=== PATIENT | female | born 1960 | race Caucasian/White ===

== ENCOUNTER → 2016-10-16 | Outpatient (CLI) | payer BC ==
[~2016-10-16] MED LIST: ACETAMINOPHEN PO; ALBUTEROL17 G1 IH; AVALIDE 150-12.1 TAB PO; BENADRYL25 MG PO; EC-NAPROSYN500 MG PO; EPIPEN0.3 MG/0.1 IM; FLEXERIL10 MG PO; LEXAPRO PO; MEDROL DOSEPAK4 MG PO; MEDROL4 MG/DOSE- PO; NEURONTIN100 MG PO; PEPCID AC20 M2 PO; PERCOCET 5/321 UDTAB DOB; PREDNISONE PO; REQUIP1 MG PO; ZITHROMAX1 G/PKT PO
--- NOTE | ~2016-10-16 | US24 ---
[facility] A Service of [facility] RADIOLOGY TEXT RESULTS PATIENT: MARIAH VALDIVIA LOCATION: [facility] : 60 UNIT #: [id number] AGE: [address]: Perla Moscoso APRN SEX: F ORDER DR: [id number] [facility] [address] [place], [place] [address] [id number] O MR#: [id number] Acc #: [id number] NAME: MARIAH VALDIVIA. : 1960 SEX: F STUDY DATE/TIME: 10/16/2016 16:09 UNIT: [facility] ROOM: STUDY DESCRIPTION: US Breast Unilateral Attending Physician: Perla Moscoso A.P.R.N. Referring Physician: Perla Moscoso A.P.R.N. Ordering Physician: Perla Moscoso A.P.R.N. Primary Care Physician: Perla Moscoso A.P.R.N. MEDICAL IMAGING REPORT This report is preliminary unless electronic signature is present EXAM Left breast ultrasound. COMPARISON STUDIES Screening mammogram, 10/02/2016; other mammograms, 05/18/2015, 04/13/2015, 05/11/2008; left breast ultrasound, 05/18/2015. HISTORY 55-year-old female with an enlarging 1 o'clock left breast mass. Further imaging evaluation with ultrasound was indicated. FINDINGS In the 1 o'clock left breast approximately 3 cm from the nipple, there is a benign simple cluster of cysts, measuring 1.1 cm x 1.3 cm by up to 0.6 cm. This corresponds in size and location to the enlarging mammographic mass of concern. Slightly more inferior and medial to this, there is a stable cyst measuring 6 mm x 6 mm x 7 mm in the 1 o'clock left breast 2 cm from the nipple. This is stable mammographically and is stable to slightly diminished in size on sonography. IMPRESSION 1. No sonographic evidence of malignancy in the left breast. The mammographic finding of initial concern corresponds to a simple cluster of cysts. In the absence of interval breast complaints, continued annual screening mammography is recommended. 2. Findings and recommendations were discussed with the patient today. BIRADS: 2 Benign finding. [facility] A Service of [facility] RADIOLOGY TEXT RESULTS PATIENT: MARIAH VALDIVIA LOCATION: [facility] : 60 UNIT #: [id number] AGE: [address]: Perla Moscoso APRN SEX: F ORDER DR: Dictated by... Tesfaye You M.D. THIS IS AN ELECTRONICALLY VERIFIED REPORT Tesfaye You M.D. at 10/19/2016 6:52 PM ERASMO/emy TD: 10/17/2016 10:35 JOB #: [id number] MEDICAL IMAGING REPORT COPY
== END | disposition home or self-care (01) ==
LOC: CWCC 15:55
DX: R92.8 Other abnormal and inconclusive findings on diagnostic imaging of breast (principal); N60.02 Solitary cyst of left breast
CPT/HCPCS: 76641